=== PATIENT | male | born 1970 | race Caucasian/White ===

== ENCOUNTER 2016-06-30 18:14 | Emergency (ER) | payer SELFPAY ==
[2016-06-30 19:26] LABS: microscopic required? NO
[2016-06-30 19:46] LABS: UA SPECIFIC GRAVITY 1.025 (1.005-1.035); urine erythrocyte NEGATIVE (NEGATIVE)
[2016-06-30 19:53] LABS: PLATELET COUNT 201 x10^3mcL (130-400)
[2016-06-30 19:55] LABS: BASOPHIL % 0 % (0-2)
[2016-06-30 20:11] LABS: CALCIUM 8.9 mg/dL (8.5-10.1); CARBON DIOXIDE 23.7 mmol/L (21-32); CHLORIDE SERUM 100 mmol/L (98-107); CREATININE SERUM 1.2 mg/dL (0.7-1.3); GFR1 > 60 mL/min; GLUCOSE SERUM 122 mg/dL (74-106); POTASSIUM SERUM 3.5 mmol/L (3.5-5.1); SODIUM SERUM 137 mmol/L (136-145)
[2016-06-30 20:18] LABS: ALKALINE PHOSPHATASE 73 U/L (46-116); ALT/SGPT 55 U/L (16-63); AMYLASE 55 U/L (25-115); AST/SGOT 31 U/L (15-37); BILIRUBIN TOTAL 0.7 mg/dL (0.20-1.00); LIPASE 125 IU/L (73-393); TOTAL PROTEIN, SERUM 7.7 g/dL (6.4-8.2)
[2016-06-30 20:42] VITALS: BP 149/94
== END 2016-06-30 20:42 | disposition home or self-care (01) ==
LOC: ED 18:14
PROVIDERS: Emergency Medicine
DX: R10.32 Left lower quadrant pain (principal)
CPT/HCPCS: Q0092